=== PATIENT | male | born 1995 | race Asian ===

== ENCOUNTER 2024-12-17 11:48 | Emergency (ER) | payer OTHER, SELFPAY ==
[2024-12-17 12:12] VITALS: BP 113/66; PULSE 77; RESP 16; TEMP 36.1; O2SAT 100
--- NOTE | 2024-12-17 13:38 | ED.GENADULT ---
HPI - General Adult General Chief complaint: Unspecified Stated complaint: Rectal pain/swelling Time Seen by Provider: 12/17/24 12:56 History of Present Illness HPI narrative: 29-year-old male with no other pertinent past medical history presenting to the emergency room with left-sided rectal pain and swelling for last 2 months. He states for last 2 weeks he has been having difficulty laying on his backside and sitting on the toilet. He states he gets pain in the left side of his butt cheeks. No bleeding. Was otherwise in his normal state of health. Got a cream [id number] which is not been helping him. Was told might be a hemorrhoid. No history of hemorrhoids. No history of GI disease. No abdominal pain, nausea, vomiting, rectal bleeding. No foreign bodies. Related Data Allergies Allergy/AdvReac Type Severity Reaction Status Date / Time No Known Allergies Allergy Verified 12/17/24 11:50 Review of Systems Review of Systems: As reviewed above in HPI Exam Narrative: GENERAL: [Well-appearing, well-nourished, and in no acute distress.] HEAD: [Normocephalic, atraumatic.] EYES: [PERRLA and EOMI.] ENT: Nares clear, no rhinorrhea or epistaxis. Mucous membranes moist. NECK: Supple. CHEST: [Clear to auscultation. No respiratory distress.] HEART: [Regular rate and rhythm]. No murmur heard. [Normal peripheral pulses.] ABDOMEN: [Soft, nondistended], [nontender], [No rigidity or guarding] RECTAL: Left perirectal abscess identified within area of fluctuance, overlying erythema but no tense compartments. No drainage. No bleeding. No rectal hemorrhoids. No anal fissures. Rectal abscess is lateral to the intergluteal fold EXTREMITIES: Normal range of motion. [No edema.] SKIN: Warm, dry, no rash. NEURO: [No focal deficits]. Alert and oriented [x3.] PSYCH: [Normal mood and affect.] Course Vital Signs Vital signs: Vital Signs Temperature 36.1 C L 12/17/24 12:12 Pulse Rate 77 12/17/24 12:12 Respiratory Rate 16 12/17/24 12:12 Blood Pressure 113/66 12/17/24 12:12 Pulse Oximetry 100 12/17/24 12:12 Oxygen Delivery Room Air 12/17/24 12:12 Temperature 36.1 C L 12/17/24 12:12 Pulse Rate 77 12/17/24 12:12 Respiratory Rate 16 12/17/24 12:12 Blood Pressure 113/66 12/17/24 12:12 Pulse Oximetry 100 12/17/24 12:12 Oxygen Delivery Room Air 12/17/24 12:12 Procedures Abscess I/D lizzeth-rectal: Date of Incision: 12/17/24 Time of Incision: 14:00 Side (if applicable): left Sedation/analgesia: none Local Anesthetic: lidocaine 2% and with epi Amount of anesthesia used (mL): 3 Technique: incised with #11 blade and probed loculations Amount of fluid expressed (mL): 5 Irrigation: Yes Packing used?: iodoform I&D Results: Pus and Blood Abcess I&D Additional Comments: Gauze dressing applied over top, string from the iodoform gauze left to the side for easy removal at home. Medical Decision Making MDM Narrative Medical decision making narrative: 29-year-old male presenting with left-sided perirectal abscess for last 2 months. States that he has been having some pain with defecating and pain with sitting down and lying flat on his back side. Tried a cream topically without any relief of symptoms. Denies any fever, chills, rectal bleeding, foreign bodies, any medical history. Normal vital signs with any fever, tachycardia. There is a area of fluctuance and erythema to the left lateral perirectal area which appears to be a good location for incision and drainage at bedside. Discussed this with the patient and he was comfortable in verbally consented for the procedure. 2% lidocaine with epinephrine was ordered and procedure conducted as described above. Patient remained hemodynamically stable and comfortable and be discharged home with antibiotics. Patient will follow-up with regular doctor. Patient is stable for discharge. Medical Records Medical records reviewed: Yes I reviewed the external patient's medical records. Vital Signs Vital Signs: Vital Signs Temperature 36.1 C L 12/17/24 12:12 Pulse Rate 77 12/17/24 12:12 Respiratory Rate 16 12/17/24 12:12 Blood Pressure 113/66 12/17/24 12:12 Pulse Oximetry 100 12/17/24 12:12 Oxygen Delivery Room Air 12/17/24 12:12 Temperature 36.1 C L 12/17/24 12:12 Pulse Rate 77 12/17/24 12:12 Respiratory Rate 16 12/17/24 12:12 Blood Pressure 113/66 12/17/24 12:12 Pulse Oximetry 100 12/17/24 12:12 Oxygen Delivery Room Air 12/17/24 12:12 Discharge Plan Discharge Clinical Impression: Abscess, perirectal, Encounter for incision and drainage procedure Patient Disposition: Home Condition: Stable Instructions: Antibiotic Form, Abscess Incision and Drainage (DC) Additional Instructions: We performed an incision and drainage of your perirectal abscess here today. Keep the iodoform gauze in place for the next 24 hours and then have it fall out in the shower with some gentle traction on the string. The wound will continue to lose and might bleed slightly given that it is open to the air. Keep it clean and covered with gauze or bandages. It will close on its own in several days. We will send you home with antibiotics for coverage. Follow-up with regular doctor. Return with any persistent bleeding or new concerns. Patient Language: Moldovan Prescriptions: New amoxicillin-pot clavulanate 875-125 mg tablet 1 tablet PO Q12H 10 Days Qty: 20 0RF Follow-up/Referrals: UNKNOWN,DOCTOR [Primary Care Provider] - Time of Disposition: 14:09
[2024-12-17 14:26] VITALS: BP 137/85; PULSE 78; RESP 18; TEMP 36.9; O2SAT 99
== END 2024-12-17 14:28 | disposition home or self-care (01) ==
PROVIDERS: Emergency Provider Student in an Organized Health Care Education/Training Program
DX: K61.1 Rectal abscess (principal)
CPT/HCPCS: 46040; 99283; J2004